=== PATIENT | female | born 1985 | race African-American/Black ===

== ENCOUNTER 2021-08-02 18:03 | Emergency (ER) | payer OTHER ==
[2021-08-02 18:16] VITALS: BP 123/80
[2021-08-02] MEDS ORDERED: KETOROLAC 60 MG/2 ML VIAL IM STA (18:26)
--- NOTE | 2021-08-02 18:56 | ED Physician Documentation ---
PD HPI LOWER EXT INJURY - Stated complaint Stated Complaint: LEFT KNEE SWELLING - Chief complaint Chief Complaint: Trauma Ext - History obtained from History obtained from: Patient - History of Present Illness PD HPI LOW EXT INJURY LOCATION: Left, Knee Type of injury: Fall, Twist Where injury occurred: Other (gym and home) Timing - onset: Today, How many days ago (5) Improved by: Rest, Immobilization Worsened by: Moving, Palpating Associated symptoms: Swelling. No: Weakness, Numbness Contributing factors: No: Anticoagulated, Prior ortho surgery Similar symptoms before: Has not had sx before Recently seen: Not recently seen - Additional information Additional information: 35-year-old female reports that she was in the gym 5 days ago when she twisted her knee awkwardly and had some swelling and pain associated with this. She was able to walk on this and today she was out walking her dog when the dog stop short hold her and she fell forward directly onto the knee. She now has increased swelling and pain she is not able to bear weight without significant pain. Review of Systems Constitutional: denies: Fever Eyes: denies: Decreased vision Ears: denies: Ear pain Nose: denies: Congestion Throat: denies: Sore throat Respiratory: denies: Cough GI: denies: Vomiting PD PAST MEDICAL HISTORY - Present Medications Home Medications: Ambulatory Orders Medication Instructions Recorded Confirmed HYDROcod/ACETAM 5/325 [[place] 5/325] 1 - 2 tablet PO Q6H PRN #14 tablet 08/02/21 - Allergies Allergies/Adverse Reactions: Allergies Allergy/AdvReac Type Severity Reaction Status Date / Time No Known Drug Allergies Allergy Verified 08/02/21 18:16 PD ED PE NORMAL - Vitals Vital signs reviewed: Yes (Normal) - General General: Alert and oriented X 3, Well developed/nourished, Other (35-year-old female with tears to her eyes appears to be in pain) - HEENT HEENT: Atraumatic, PERRL, EOMI - Respiratory Respiratory: No respiratory distress - Derm Derm: Normal color, Warm and dry, No rash - Extremities Extremities: No deformity, No edema, Other (There is point tenderness to the prepatellar area and the medial joint line. The ligaments are stable to te sting. 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 No acute osseous abnormalit y.), EMP read indepedently, See rad report PD MEDICAL DECISION MAKING - ED course Complexity details: reviewed results, re-evaluated patient, considered differential, d/w patient ED course: 35-year-old female who sprained her knee twice this week has stable ligaments and she is placed into a knee immobilizer and provided with some pain medication and we will have her follow-up with orthopedics. Departure - Departure Disposition: 01 Home, Self Care Instructions: ED Sprain Knee Follow-Up: Miguel Hare MD [Provider Admit Priv/Credential] - Prescriptions: HYDROcod/ACETAM 5/325 [[place] 5/325] 1 - 2 tablet PO Q6H PRN #14 tablet PRN Reason: Pain Discharge Date/Time: 08/02/21 19:43
--- NOTE | 2021-08-02 19:47 | XRAY Report ---
PROCEDURE: Knee 4 View LT INDICATIONS: twist, swelling pain TECHNIQUE: 4 views of the left knee(s) were acquired. COMPARISON: None. FINDINGS: BONES/JOINT: No acute, displaced fracture or dislocation. No substantial suprapatellar joint effusio n. Mild tricompartment osteophytosis. SOFT TISSUES: No significant abnormality. IMPRESSION: 1.No acute osseous abnormality. Reviewed by: Hudson Del Rio MD on 08/02/2021 7:46 PM PST Approved by: Hudson Del Rio MD on 08/02/2021 7:46 PM PST Station ID: [id number]
== END 2021-08-02 19:43 | disposition home or self-care (01) ==
LOC: ED 18:03
DX: S83.92XA Sprain of unspecified site of left knee, initial encounter (principal); W18.39XA Other fall on same level, initial encounter; X50.1XXA Overexertion from prolonged static or awkward postures, initial encounter; Y93.B9 Activity, other involving muscle strengthening exercises; Y92.39 Other specified sports and athletic area as the place of occurrence of the external cause; Y93.K1 Activity, walking an animal
CPT/HCPCS: 96372; 99282; 99283

== ENCOUNTER 2021-08-27 18:55 | Emergency (ER) | payer OTHER ==
--- NOTE | 2021-08-27 20:09 | XRAY Report ---
PROCEDURE: Knee 4 View LT INDICATIONS: fall 1 month ago, continued pain TECHNIQUE: 3 views of the left knee(s) were acquired. COMPARISON: None. FINDINGS: Bones: No fractures or dislocations. No suspicious bony lesions. Mild tricompartmental periarticul ar osteophyte formation. Soft tissues: No joint effusion. No suspicious soft tissue calcifications. IMPRESSION: Mild osteoarthritis. No acute fracture. No osseous lesion. If symptoms and/or clinical s uspicion for pathology continue, further assessment with repeat plain films, or advanced imaging (e.g ., CT, MRI, or bone scan) is recommended for further assessment. Reviewed by: Deann Oden MD on 08/27/2021 8:08 PM PST Approved by: Deann Oden MD on 08/27/2021 8:08 PM PST Station ID: [id number]
[2021-08-27] MEDS ORDERED: HYDROcod/ACETAM 5/325 MG TABLET PO STA (20:51)
--- NOTE | 2021-08-27 20:57 | ED Physician Documentation ---
History of Present Illness - Stated complaint Stated Complaint: KNEE PX - Chief complaint Chief Complaint: Ext Problem - History obtained from History obtained from: Patient - History of Present Illness Pain level max: 9 Pain level now: 9 - Additonal information Additional information: 35-year-old female with knee pain to the left knee for the past 2 to 3 years. She states she reinjured it about 1 month ago. Worse with movement, better with rest. She does wear a knee brace, has not been using her crutches. She is scheduled to resume physical therapy. She states she had arthroscopy several years ago but does not remember what happened. She is supposed to start physical therapy. She states the Aleve her doctor gave her is not helping. Review of Systems Constitutional: denies: Fever, Chills GI: denies: Vomiting : denies: Now [place] PD PAST MEDICAL HISTORY - Past Medical History Past Medical History: No - Past Surgical History Past Surgical History: Yes Ortho: Arthroscopic surgery - Present Medications Home Medications: Ambulatory Orders Medication Instructions Recorded Confirmed HYDROcod/ACETAM 5/325 [[place] 5/325] 1 - 2 tablet PO Q6H PRN #14 tablet 08/02/21 HYDROcod/ACETAM 5/325 [[place] 5/325] 1 - 2 ea PO Q6H PRN #14 tablet 08/27/21 - Allergies Allergies/Adverse Reactions: Allergies Allergy/AdvReac Type Severity Reaction Status Date / Time No Known Drug Allergies Allergy Verified 08/27/21 19:09 PD ED PE NORMAL - Vitals Vital signs reviewed: Yes - General General: Alert and oriented X 3, No acute distress - HEENT HEENT: Moist mucous membranes - Neck Neck: Supple, no meningeal sign - Cardiac Cardiac: RRR - Respiratory Respiratory: No respiratory distress, Clear bilaterally - Derm Derm: Warm and dry - Extremities Extremities: Other (Diffusely tender palpation about the left knee. No joint effusion. No skin changes. No swelling. Unable to tolerate ligamentous testing or meniscus testing. Neurovascular intact.) - Neuro Neuro: Alert and oriented X 3 - Psych Psych: Normal mood, Normal affect Results - Vitals Vitals: Vital Signs - 24 hr 08/27/21 08/27/21 19:05 21:02 Temperature 36.2 C L 36.5 C Heart Rate 91 88 Respiratory 24 16 Rate Blood Pressure 116/79 112/80 O2 Saturation 99 100 Oxygen O2 Source Room air - Rads (name of study) Left knee x-ray Radiology: Final report received, EMP read contemporaneously, See rad report (Mild osteoarthritis without acute abnormality) PD MEDICAL DECISION MAKING - ED course Complexity details: reviewed results, re-evaluated patient, considered differential, d/w patient ED course: 35-year-old female with knee pain of unclear etiology. Recommend that she utilize her crutches and bracing at home. Will prescribe a small amount of pain medication. Recommend she see an orthopedist for further care. Patient counseled regarding signs and symptoms for which I believe and urgent re- evaluation would be necessary. Patient with good understanding of and agreement to plan and is comfortable going home at this time This document was made in part using voice recognition software. While efforts are made to proofread this document, sound alike and grammatical errors may occur. I am prescribing a short course of short-acting opioid pain medication for this patient. 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 I have discussed that the opioids are for short term therapy only, and will not be refilled from the ED. Departure - Departure Disposition: Home, Self Care Clinical Impression: Knee pain, left Qualifiers: Chronicity: chronic Qualified Code(s): M25.562 - Pain in left knee Condition: Good Instructions: ED Knee Pain [facility] Follow-Up: ESTEFANIA GROVE PA-C [Primary Care Provider] - [facility] [Provider Group] Karin Bravo MD [Physician No Access] - Prescriptions: HYDROcod/ACETAM 5/325 [[place] 5/325] 1 - 2 ea PO Q6H PRN #14 tablet PRN Reason: Pain Comments: Please follow-up with your doctor for further care. I would recommend that you follow-up with an orthopedist again to have your knee reevaluated. You should obtain your prior orthopedic records as well. Your prescription was sent to [facility] in [place]. I am prescribing a short course of narcotic pain medication for you. These are potentially dangerous and addictive medications that should be used carefully. These medications may constipate you. Take an kxud-lpr-qxkjmrv stool softener (docusate) twice daily with plenty of water while taking these medications. If you go 24 hours without a bowel movement, take qnpt-gkg-sndizyd miralax, per package instructions. Do not drink or drive while taking these medications. If you received narcotic or sedating medications while in the emergency department, do not drive for 24 hours. Store this medication in a safe, secure place and out of reach of children. It is a violation of federal law to give or sell this medication to another person or to use in a manner other than prescribed. The ED will not refill narcotic prescriptions, including prescriptions lost or stolen. To dispose of unwanted medications: 1. [facility] at [address] in [place] has a medication drop box. They accept prescription medications (in pill form) Thursday through Thursday 9:00 a.m. to 5:00 p.m. 2. [facility] accepts prescription medications (in pill form only) for disposal year round. Call for more information. 3. Contact the [facility] for the next [facility] sponsored prescription drug collection event. , [phone], or [phone]; Discharge Date/Time: 08/27/21 21:02
[2021-08-27 21:03] VITALS: BP 112/80
== END 2021-08-27 21:02 | disposition home or self-care (01) ==
LOC: ED 18:55
DX: M25.562 Pain in left knee (principal)
CPT/HCPCS: 73564; 99283; A9270

== ENCOUNTER 2021-11-05 13:19 | Outpatient (CLI) | payer OTHER ==
--- NOTE | 2021-11-05 15:38 | MRI Report ---
PROCEDURE: Knee LT W/O INDICATIONS: LEFT KNEE PAIN TECHNIQUE: Noncontrast sagittal PD fast spin echo and T2 fast spin echo with fat saturation, sagittal 3-D gradie nt sequence with fat saturation; coronal T1 spin echo and PD fast spin echo with fat saturation, and axial PD fast spin echo with fat saturation through the knee. COMPARISON: Reference is made to the radiograph dated August 27, 2021 Findings: Medial meniscus: No surface communication/tear. Lateral meniscus: No surface communication/tear. LIGAMENTS/TENDONS: Patellar tendon: Intact. Distal quadriceps tendon: Intact. Hoffa's fat pad: No evidence of fibrosis or mass. PCL: Intact. ACL: Intact. Lateral collateral ligament complex: No significant abnormality. Popliteus tendon: Intact. Medial collateral ligament: No significant abnormality. MARROW: No significant abnormality. CARTILAGE: No significant chondromalacia or delamination injury. Muscles: No significant edema or atrophy. Joint effusion/Huertas's cyst: No large joint effusion or Huertas's cyst. Subcutaneous soft tissues: No significant edema. IMPRESSION: 1.No evidence of internal derangement. Reviewed by: Hudson Del Rio MD on 11/05/2021 3:37 PM PDT Approved by: Hudson Del Rio MD on 11/05/2021 3:37 PM PDT Station ID: [id number]
[2021-11-05] MEDS ORDERED: GADOBUTROL 10 MMOL/10 ML VIAL IVP ONE ×2 (16:35)
== END 2021-11-05 13:20 | disposition home or self-care (01) ==
LOC: DI 13:19
PROVIDERS: ATTEND Physician Assistant
DX: M25.562 Pain in left knee (principal)
CPT/HCPCS: 73721; A9585

== ENCOUNTER 2021-11-11 11:15 | Outpatient (CLI) | payer OTHER ==
--- NOTE | 2021-11-11 17:14 | XRAY Report ---
PROCEDURE: Knee 3 View LT INDICATIONS: LEFT KNEE PAIN TECHNIQUE: 3 views of the left knee(s) were acquired. COMPARISON: 08/27/2021 FINDINGS: Bones: No acute fractures or dislocations. No suspicious bony lesions. Tricompartmental degenerativ e changes of the left knee with minimal medial compartment joint space narrowing bilaterally. Small m arginal osteophytes. Soft tissues: There is a small joint effusion. No suspicious soft tissue calcifications. IMPRESSION: Left knee without acute fracture or malalignment. Tricompartmental osteoarthrosis of the left knee with minimal medial femorotibial compartment joint space narrowing. Small joint effusion. Reviewed by: Shaun Campo MD on 11/11/2021 5:13 PM PDT Approved by: Shaun Campo MD on 11/11/2021 5:13 PM PDT Station ID: [id number]
== END 2021-11-11 23:59 | disposition home or self-care (01) ==
LOC: DI.WOS 11:15
PROVIDERS: ATTEND Physician Assistant
DX: M17.12 Unilateral primary osteoarthritis, left knee (principal)

== ENCOUNTER 2023-02-13 16:29 | Emergency (ER) | payer OTHER ==
--- NOTE | 2023-02-13 16:43 | ED Physician Documentation ---
PD HPI HEADACHE - Stated complaint Stated Complaint: MIGRAINE,RT EYE PX - Chief complaint Chief Complaint: General - History obtained from History obtained from: Patient - History of Present Illness Timing - onset: How many days ago (4) Timing - onset during: Light activity Timing - duration: Days (4) Timing - details: Gradual onset (Initial onset of her headache was one-sided with some nausea and light sensitivity consistent with prior migraines. It is persisted since Thursday which is 4 days ago. Last night into today she has developed some pain and pressure feeling in the right eye also. This is not common of her migraines.), Still present Worst headache ever?: No: Worst headache ever? (similar to other migraines, but has not had the eye discomfort/pressure previously.) Location: Right Quality: Throbbing, Aching Associated symptoms: Nausea. No: Fever, Stiff neck, Vomiting Improved by: Dark room. No: Meds Worsened by: Light Contributing factors: No: Anticoagulated, Recent illness, Trauma Similar symptoms before: Diagnosis (the headache/symptoms the past 3 days are similar to prior migraines. Today with right eye feeling blurred, pressured behind eye. No rash/redness nor discharge.) Recently seen: Clinic (walk In this morning and got IM toradol and PO decadron, Benadryl. Some improved briefly but then back at same level of headache.) Review of Systems Constitutional: denies: Fever, Chills Eyes: reports: Photophobia. denies: Loss of vision, Discharge, Irritation Nose: denies: Rhinorrhea / runny nose, Congestion, Sinus pressure / pain Throat: denies: Sore throat Neurologic: reports: Headache. denies: Focal weakness, Numbness, Altered mental status, Head injury PD PAST MEDICAL HISTORY - Past Medical History Cardiovascular: None Respiratory: None Neuro: Headaches Endocrine/Autoimmune: None - Past Surgical History Past Surgical History: Yes Ortho: Arthroscopic surgery - Present Medications Home Medications: Ambulatory Orders Medication Instructions Recorded Confirmed Buspirone HCl 10 mg PO DAILY 02/13/23 02/13/23 Butalb/Acetam/Caff 50/325/40 1 each PO Q6H PRN #10 tablet 02/13/23 [Fioricet] Fluticasone 110 Mcg [Flovent] 1 puffs INH DAILY 02/13/23 02/13/23 Nortriptyline [Pamelor] 10 mg PO DAILY 02/13/23 02/13/23 Ondansetron Odt [Zofran] 4 mg TL Q6H PRN #10 tablet 02/13/23 Prochlorperazine [Compazine] 5 mg PO Q6H PRN #10 tablet 02/13/23 Topiramate [Topiramate ER] 100 mg PO DAILY 02/13/23 02/13/23 - Allergies Allergies/Adverse Reactions: Allergies Allergy/AdvReac Type Severity Reaction Status Date / Time No Known Drug Allergies Allergy Verified 08/27/21 19:09 PD ED PE NORMAL - Vitals Vital signs reviewed: Yes - General General: Alert and oriented X 3, Well developed/nourished - HEENT HEENT: PERRL (the upper eyelid is tender without redness, and tender skin to lateral periorbital area. ), EOMI (without pain.), Other (light sensitive mainly right eye. Tender on the eyelid and periorbital area eyebrow and lateral. No redness nor swelling. ) - Neck Neck: Supple, no meningeal sign, No adenopathy - Cardiac Cardiac: RRR, No murmur - Respiratory Respiratory: Clear bilaterally PD ED PE EXPANDED - Eyes Eyes: Anterior chambers clear, Normal fundi, Other (IOP 14). No: Fluorescein uptake Results - Vitals Vitals: Vital Signs - 24 hr 02/13/23 02/13/23 16:33 18:30 Temperature 36.1 C L 36.5 C Heart Rate 110 H 61 Respiratory 20 16 Rate Blood Pressure 135/76 H 107/62 O2 Saturation 99 98 Oxygen O2 Source Room air - Labs Labs: Laboratory Tests 02/13/23 02/13/23 17:10 17:10 WBC 7.6 RBC 4.18 L Hgb 13.2 Hct 36.9 L MCV 88.3 MCH 31.6 H MCHC 35.8 RDW 14.5 Plt Count 278 MPV 10.4 Neut # (Auto) 5.8 Lymph # (Auto) 1.6 [place] # (Auto) 0.1 Eos # (Auto) 0.0 Baso # (Auto) 0.0 Absolute Nucleated RBC 0.00 Nucleated RBC % 0.0 Sodium 139 Potassium 4.3 Chloride 107 Carbon Dioxide 27 Anion Gap 5.0 L BUN 11 Creatinine 0.8 Estimated GFR (MDRD) 97 Glucose 163 H Calcium 10.5 H C-Reactive Protein 1.2 PD Medical Decision Making - ED course Complexity details: re-evaluated patient (she says her headache has much improved with fluids, toradol, compazine IV. Still with some residual headache but then checked again and she says minimal headache and feels able to leave for home. States the eye pressure, visual change, and eyelid tenderness are gone now. ), considered differential (persistent migraine. Now with right eye pressure and periorbital tenderness. Consider secondary eye infection but does not have appearance of that. Checked IOP to ensure not acute gloucoma.Consider shingles/ herpetic due to the sknin sensitivity. However it felt better with meds here.), d/w patient Departure - Departure Disposition: Home, Self Care Clinical Impression: Eye pressure Migraine Qualifiers: Migraine type: unspecified Status migrainosus presence: with status migrainosus Condition: Stable Record reviewed to determine appropriate education?: Yes Instructions: ED Headache Migraine Follow-Up: [facility] [Provider Group] Prescriptions: Prochlorperazine [Compazine] 5 mg PO Q6H PRN #10 tablet PRN Reason: Migraine Butalb/Acetam/Caff 50/325/40 [Fioricet] 1 each PO Q6H PRN #10 tablet PRN Reason: Migraine Ondansetron Odt [Zofran] 4 mg TL Q6H PRN #10 tablet PRN Reason: Nausea / Vomiting Comments: It is good that your headache is improving. The medications given were tailored towards a migraine type headache. They do tend to work a little better IV. Home and rest this evening. Ondansetron if needed for any persistent nausea or Compazine if needed for nausea not improved by the Zofran. Compazine can tend to work better on migraine related nausea. Ibuprofen or Tylenol if needed for persisting residual headache. Recheck if not fully improved into tomorrow. Return if worse. For subsequent migraine headaches, you could use a combination of the the ondansetron/Zofran combined with Fioricet migraine medication. This is a different category from the Imitrex/Maxalt that you have tried before. See if this is successful on your migraines. Follow-up with your primary care. I sent your prescriptions to your preferred pharmacy. Forms: PCP List Discharge Date/Time: 02/13/23 18:43
[2023-02-13] MEDS ORDERED: SODIUM CHLORIDE 0.9% 1,000 ML IV STA (16:56)
[2023-02-13] MEDS ORDERED: PROCHLORPERAZINE 10 MG/2 ML VIAL IVP STA (16:56)
[2023-02-13] MEDS ORDERED: KETOROLAC 15 MG/ML VIAL IVP STA (16:56)
[2023-02-13 17:16] LABS: BASOPHILS % (AUTO) 0.3 %; HCT - HEMATOCRIT 36.9 % (37.0-47.0); HGB - HEMOGLOBIN 13.2 g/dL (12.0-16.0); LYMPHOCYTES # (AUTO) 1.6 10^3/uL (1.5-3.5); MEAN CORPUSCULAR HEMOGLOBIN 31.6 pg (27.0-31.0); MEAN CORPUSCULAR HGB CONC 35.8 g/dL (32.0-36.0); MEAN CORPUSCULAR VOLUME 88.3 fL (81.0-99.0); MEAN PLATELET VOLUME 10.4 fL (7.9-10.8); MONOCYTES # (AUTO) 0.1 10^3/uL (0.0-1.0); MONOCYTES % (AUTO) 0.8 %; NEUTROPHILS # (AUTO) 5.8 10^3/uL (1.5-6.6); NEUTROPHILS % (AUTO) 76.1 %; PLT - PLATELET COUNT 278 10^3/uL (130-450); RED BLOOD COUNT 4.18 10^6/uL (4.20-5.40); RED CELL DISTRIBUTION WIDTH 14.5 % (12.0-15.0); WHITE BLOOD COUNT 7.6 x10^3/uL (4.8-10.8)
[2023-02-13 17:38] LABS: CRP - C-REACTIVE PROTEIN 1.2 mg/dL (<0.5)
[2023-02-13 18:11] LABS: CALCIUM 10.5 mg/dL (8.5-10.3); CREATININE 0.8 mg/dL (0.6-1.3); POTASSIUM 4.3 mmol/L (3.5-4.5)
[2023-02-13 18:39] VITALS: BP 107/62; O2SAT 98
== END 2023-02-13 18:43 | disposition home or self-care (01) ==
LOC: ED 16:29
DX: G43.901 Migraine, unspecified, not intractable, with status migrainosus (principal); Z79.899 Other long term (current) drug therapy
CPT/HCPCS: 36415; 80048; 85025; 86140; 96374; 99283